=== PATIENT | female | born 1960 | race Caucasian/White ===

== ENCOUNTER 2016-09-06 11:55 | Day surgery (SDC) | payer OTHER ==
[~2016-09-06] VITALS: Ht 152.4 cm; Wt 66.3 kg
[2016-09-06 12:57] VITALS: Ht 152.4 cm; Wt 66.3 kg
[2016-09-06] MEDS ORDERED: HYDR25CA98 PO (13:07)
[2016-09-06] MEDS ORDERED: FOLI-49 PO (13:07)
[2016-09-06] MEDS ORDERED: SERT50TA6 PO (13:07)
[2016-09-06] MEDS ORDERED: CETI5SOL PO (13:07)
[2016-09-06 13:31] VITALS: BP 130/61; PULSE 79; RESP 20
[2016-09-06] MEDS ORDERED: PROPOFOL 20 ML ONE (14:18)
[2016-09-06] MEDS ORDERED: LIDOCAINE 100 MG SYRINGE ONE (14:18)
[2016-09-06] MEDS ORDERED: FENTAnyl 50 MCG/ML VIAL ONE (14:19)
[2016-09-06 15:50] VITALS: BP 128/83; PULSE 82; RESP 18
--- NOTE | 2016-09-07 02:56 | GILP ---
DATE OF PROCEDURE: 09/06/2016 DATE: 09/06/2016 NAME OF PROCEDURE: Esophagogastroduodenoscopy with biopsies. SURGEON: Edel Slater MD. HISTORY AND INDICATIONS: The patient here for surveillance of esophageal varices. PREMEDICATION: Monitored anesthesia care by anesthesiologist. INSTRUMENT USED: Olympus panendoscope. TECHNIQUE: After informed consent, with the patient/relatives understanding the procedure, its indic ations, potential risks, and complications, including but not limited to: allergic reaction, bleedin g, perforation or infection, and after all pertinent questions were answered to the patient's satisf action, the patient/relatives signed witnessed informed consent. Following this, premedication was administered slowly IV push under careful cardiovascular and respi ratory monitoring with pulse oximetry, automatic blood pressure and gambling monitor. Once the sedative effect was achieved the patient was place in the left lateral decubitus, the panen doscope was introduced and advanced under visual control. Careful examination of the upper gastrointestinal tract, both on insertion as well as withdrawal of the instrument disclosed the following findings: ESOPHAGUS: The distal esophagus shows grade II/IV esophageal varices with no stigmata of recent ble eding. STOMACH: Upon entrance to the stomach air was insufflated. The gastric sawyer distended normally. There is erythema and edema of the mucosa as well as congestion suggestive of portal hypertensive ga stropathy. Biopsies were obtained to rule out Helicobacter pylori infection. PYLORUS: The pylorus appears patent and within normal limits, with no evidence of gastric outlet ob struction. DUODENUM: The duodenal mucosa was carefully examined in the duodenal bulb as well as the second por tion of the duodenum and appears unremarkable with no evidence of duodenitis, ulcer, or neoplasm. The instrument was then withdrawn, the patient tolerated the procedure well and was transfer out of the endoscopy suite awake, and in good condition to continue recovery under observation. IMPRESSION: 1. Grade II/IV esophageal varices. No therapeutic intervention performed. 2. Gastritis versus portal hypertensive gastropathy, rule out Helicobacter pylori infection, biopsi es obtained. PLAN: The patient will be switched PPIs and pathology will be reviewed as soon as available. EGD i n 3 months is recommended. Dictated By: EDEL SLATER MS/VIC Conf#: [id number] DID#: [id number] CC: EDEL SLATER;*EndCC*
== END 2016-09-06 16:24 | disposition home or self-care (01) ==
LOC: GIL 11:55
PROVIDERS: ATTEND Internal Medicine Gastroenterology
DX: I85.00 Esophageal varices without bleeding (principal); K29.50 Unspecified chronic gastritis without bleeding; F41.8 Other specified anxiety disorders
CPT/HCPCS: 43239; 88305; 88312; J2001; J3010; Z7610

== ENCOUNTER 2017-03-28 12:58 | Day surgery (SDC) | payer OTHER ==
[~2017-03-28 12:58] MED LIST: CETI5SOL PO; FOLI-49 PO; HYDR25CA98 PO; SERT50TA6 PO
== END 2017-03-28 14:08 | disposition home or self-care (01) ==
LOC: GIL 12:58
PROVIDERS: ATTEND Internal Medicine Gastroenterology
DX: K63.5 Polyp of colon (principal); Z53.9 Procedure and treatment not carried out, unspecified reason